=== PATIENT | male | born 1955 | race Caucasian/White ===

== ENCOUNTER → 2016-06-08 | Outpatient (REF) | payer BC | LOC: M LAB REF 14:48 | PROVIDERS: ATTEND Family Medicine | DX: R19.7 Diarrhea, unspecified (principal) ==

== ENCOUNTER → 2016-06-08 | Outpatient (REF) | payer BC | LOC: M LAB REF 16:23 | PROVIDERS: ATTEND Family Medicine | DX: R19.7 Diarrhea, unspecified (principal) ==

== ENCOUNTER → 2018-07-08 | Outpatient (CLI) | payer BC, OTHER ==
--- NOTE | 2018-07-08 12:50 | REP ---
Clinical: Lung screening. History smoking. Comparison: 03/16/2017 Technique: Axial low-dose noncontrast images from the thoracic inlet to the upper abdomen using lung screening technique. Findings: The lung alfaro are well-aerated. No consolidation, significant nodule or mass lesion is appreciated. No pleural effusion/reaction or pneumothorax. Tracheobronchial tree is patent. Mediastinum demonstrates mild atherosclerotic changes of the coronary arteries without cardiomegaly. Impression: Lung-RADS category I. No nodule or suspicious abnormality. Management recommendations include annual low-dose CT evaluation. Electronically Signed by Jorge Gupta MD 07/08/2018 12:42 P
== END ==
LOC: M RAD 11:42
PROVIDERS: ATTEND Family Medicine
DX: Z12.2 Encounter for screening for malignant neoplasm of respiratory organs (principal); Z87.891 Personal history of nicotine dependence

== ENCOUNTER → 2019-11-23 | Outpatient (CLI) | payer BC, OTHER ==
--- NOTE | 2019-11-23 08:38 | REP ---
REASON: Tobacco abuse. All priors have been reviewed, the latest of which is dated 07/08/2018. As per the protocol, only lung window images were sent to the read station for interpretation. No abnormal nodules, masses, or opacities have developed. There is no change in the cardiomediastinal silhouette. There is no change in the imaged abdomen or imaged osseous structures. IMPRESSION: No change. Lung RADS category 1 exam. There is a partially and poorly imaged suspected left renal cyst which was seen by ultrasound on 01/02/2014. Followup ultrasound should be considered to ensure stability of this suspected finding. Electronically Signed by Terrell Gillette DO 11/23/2019 11:18 A
== END ==
LOC: M RAD 07:22
PROVIDERS: ATTEND Family Medicine
DX: R93.422 Abnormal radiologic findings on diagnostic imaging of left kidney (principal); Z87.891 Personal history of nicotine dependence

== ENCOUNTER 2020-02-06 10:10 | Emergency (ER) | payer BC, OTHER ==
[~2020-02-06] VITALS: Ht 175.3 cm; Wt 97.4 kg
[2020-02-06 10:11] VITALS: BP 144/78
[2020-02-06] MEDS ORDERED: FLEET OIL RETENTION ENEMA PR STA (10:49)
== END 2020-02-06 11:28 | disposition home or self-care (01) ==
LOC: M ED 10:10
DX: K59.00 Constipation, unspecified (principal); Z87.891 Personal history of nicotine dependence; Z88.0 Allergy status to penicillin

== ENCOUNTER → 2021-02-06 | Outpatient (CLI) | payer BC, OTHER ==
--- NOTE | 2021-02-07 07:22 | REP ---
INDICATION: HX OF NICOTINE DEPENDENCE COMPARISON: 11/23/2019, 07/08/2018, 03/16/2017 TECHNIQUE: Axial noncontrast images from the thoracic inlet to the upper abdomen using low-dose lung screening technique (LDCT). FINDINGS: Bilateral lung alfaro are relatively symmetric and well aerated. No acute consolidation, suspicious nodule, or mass. No effusion. No pneumothorax. Tracheobronchial tree is patent. Mediastinum is grossly normal/stable. Minimal atherosclerotic changes to the coronary arteries suggested. IMPRESSION: Stable examination. Lung-RADS 1. Management recommendations include annual low-dose CT surveillance. <Electronically signed by Jorge Gupta > 02/07/21 0719
== END ==
LOC: M RAD 16:01
PROVIDERS: ATTEND Family Medicine
DX: Z87.891 Personal history of nicotine dependence (principal)

== ENCOUNTER → 2021-02-11 | Outpatient (REF) | payer BC, OTHER ==
[2021-02-13 06:10] LABS: MUMPS VIRUS IgG ANTIBODY >300.0 AU/mL (Immune >10.9); RUBEOLA IgG ANTIBODY >300.0 AU/mL (Immune >16.4)
== END ==
LOC: M LAB REF 17:31
PROVIDERS: ATTEND Family Medicine
DX: Z02.1 Encounter for pre-employment examination (principal)

== ENCOUNTER → 2022-02-20 | Outpatient (CLI) | payer MEDICARE, BC, OTHER | LOC: M RAD 14:57 | DX: F17.211 Nicotine dependence, cigarettes, in remission (principal) ==